=== PATIENT | female | born 1985 | race Hispanic/Latino ===

== ENCOUNTER 2023-05-02 23:31 | Emergency (ER) | payer SELFPAY ==
--- OUTSIDE RECORDS SUMMARY | 2023-05-02 23:34 | XMS REPORT | Continuity of Care Document ---
:1985 Author Organization [facility] t Address [address] [place] [address] Care Team Providers Name Role Phone PCP, PATIENT DOES NOT HAVE A Primary Care Physician Unavaila ELIECER Fitzgerald Attending Clinician Unavailable SUMI HERRMANN M.D. Attending Clinician Unavailable ADULT CROSSING GUARD, ROOM5 Attending Clinician Unavailable SADI ALBERTS M.D. Attending Clinician Unavailable WOMENS, ROOM-1 Attending Clinician Unavailable [facility], ULTRASOUND3 Attending Clinician Unavailable [facility], ULTRASOUND2 Attending Clinician Unavailable [facility], ULTRASOUND Attending Clinician Unavailable PIERRE MFM-CONSULTS Attending Clinician Unavailable WOMEN, COUNSELING Attending Clinician Unavailable Payers Payer Name Policy Type Policy Number Effective Date Expiration Date [facility] [id number] 2018 00:00:00 Problems Condition Condition Condition Status Onset Resolution Last Treating Co mments Source Name Details Category Date Date Treatment Clinician Date F/U F/U Diagnosis Active 2019-01-03 Mem oria GROWTH/S>D GROWTH/S>D -16 08:58:00 l /AMA /AMA 00:00: Michael Active 12/31/2018 Kwame Rodriguez History of History of Problem Resolve UT 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 Problem Active [facility] Physici ans AMA AMA Problem Active UT (advanced (advanced Phys ici maternal maternal ans age) age) multigravi multigravi da 35+ da 35+ Encounter Encounter Problem Active UT for for Physici supervisio supervisio an s n of n of normal normal in third in third trimester trimester Encounter Encounter Problem Active UT for for Physici initial initial ans prescripti prescripti on of on of contracept contracept kenzie pills kenzie pills Bacterial Bacterial Problem Active UT vaginosis vaginosis Phys ici ans Vaginal Vaginal Problem Active UT itching itching Physici ans Low lying Low lying Problem Active UT placenta, placenta, Phys ici antepartum antepartum an s Problem Active UT hydronephr hydronephr Ph ysici osis osis ans during during , , antepartum antepartum 6 weeks 6 weeks Problem Active UT Ph ysici follow-up follow-up ans Allergies, Adverse Reactions, Alerts Allergy Allergy Status Severity Reaction(s) Onset Inactive Treating Comm ents Source Name Type Date Date Clinician NO KNOWN Drug Active Univers ALLERGIE Class ity of S [facility] Social History Smoking Status Start Date Stop Date Source Never smoker [facility] Medications Ordered Filled Start Stop Current Ordering Indication Dosage Frequency Signature Comments Components Source Medication Medication Date Date Medication? [facility]) [facility] Yes SUMI QD TAKE 1 UT 0.25-35 0.25-35 9-04 FOONG M.D. TABLET P hysici MG-MCG Oral MG-MCG Oral 00:00: DAILY ans Tablet Tablet 00 DIRECTED. Yes UT Vitamins Vitamins Physici TABS TABS ans Vital Signs Vital Name Observation Time Observation Value Comments Source BP Systolic 2019-02-19 15:27:00 119 mm[Hg] Location: [facility] Linux Voice sicians Position: Sitting BP Diastolic 2019-02-19 15:27:00 81 mm[Hg] Location: [facility] Phy sicians Position: Sitting Height 2019-02-19 15:27:00 62 [in_us] [facility] Weight 2019-02-19 15:27:00 187.375 [lb_av] [facility] Body Mass Index 2019-02-19 15:27:00 34.27 kg/m2 [facility] Calculated Heart Rate 2019-02-19 15:27:00 78 /min [facility] BP Systolic 2019-01-07 13:42:00 122 mm[Hg] Location: [facility] Phy sicians Position: Sitting BP Diastolic 2019-01-07 13:42:00 72 mm[Hg] Location: LUE; [facility] Position: Sitting Height 2019-01-07 13:42:00 62 [in_us] [facility] Weight 2019-01-07 13:42:00 206.125 [lb_av] [facility] Body Mass Index 2019-01-07 13:42:00 37.7 kg/m2 [facility] Calculated Heart Rate 2019-01-07 13:42:00 87 /min [facility] BP Systolic 2018-12-24 16:17:00 108 mm[Hg] Location: LUE; [facility] Position: Sitting BP Diastolic 2018-12-24 16:17:00 68 mm[Hg] Location: LUE; [facility] Position: Sitting Height 2018-12-24 16:17:00 62 [in_us] [facility] Weight 2018-12-24 16:17:00 204.5 [lb_av] [facility] Body Mass Index 2018-12-24 16:17:00 37.4 kg/m2 [facility] Calculated Temperature 2018-12-24 16:17:00 98.4 [degF] Method: Oral [facility] BP Systolic 2018-12-05 14:34:00 118 mm[Hg] Location: LUE; [facility] Position: Sitting BP Diastolic 2018-12-05 14:34:00 80 mm[Hg] Location: LUE; [facility] Position: Sitting Height 2018-12-05 14:34:00 62 [in_us] [facility] Weight 2018-12-05 14:34:00 199 [lb_av] [facility] Body Mass Index 2018-12-05 14:34:00 36.4 kg/m2 [facility] Calculated BP Systolic 2018-11-21 10:50:00 124 mm[Hg] Location: LUE; [facility] Position: Sitting BP Diastolic 2018-11-21 10:50:00 80 mm[Hg] Location: LUE; [facility] Position: Sitting Height 2018-11-21 10:50:00 62 [in_us] [facility] Weight 2018-11-21 10:50:00 194 [lb_av] [facility] Body Mass Index 2018-11-21 10:50:00 35.48 kg/m2 [facility] Calculated Temperature 2018-11-21 10:50:00 98.1 [degF] Method: Oral [facility] Heart Rate 2018-11-21 10:50:00 92 /min [facility] BP Systolic 2018-10-31 10:58:00 124 mm[Hg] Location: LUE; [facility] Position: Sitting BP Diastolic 2018-10-31 10:58:00 76 mm[Hg] Location: LUE; [facility] Position: Sitting Height 2018-10-31 10:58:00 62 [in_us] [facility] Weight 2018-10-31 10:58:00 186 [lb_av] [facility] Body Mass Index 2018-10-31 10:58:00 34.02 kg/m2 [facility] Calculated Heart Rate 2018-10-31 10:58:00 67 /min [facility] BP Systolic 2018-10-15 09:46:00 118 mm[Hg] Location: LUE; [facility] Position: Sitting BP Diastolic 2018-10-15 09:46:00 70 mm[Hg] Location: LUE; [facility] Position: Sitting Height 2018-10-15 09:46:00 62 [in_us] [facility] Weight 2018-10-15 09:46:00 184 [lb_av] [facility] Body Mass Index 2018-10-15 09:46:00 33.65 kg/m2 [facility] Calculated Heart Rate 2018-10-15 09:46:00 102 /min [facility] BP Systolic 2018-10-10 10:43:00 128 mm[Hg] Location: LUE; [facility] Position: Sitting BP Diastolic 2018-10-10 10:43:00 80 mm[Hg] Location: LUE; [facility] Position: Sitting Height 2018-10-10 10:43:00 62 [in_us] [facility] Weight 2018-10-10 10:43:00 181 [lb_av] [facility] Body Mass Index 2018-10-10 10:43:00 33.11 kg/m2 [facility] Calculated Temperature 2018-10-10 10:43:00 98.2 [degF] Method: Oral [facility] Heart Rate 2018-10-10 10:43:00 99 /min [facility] BP Systolic 2018-09-24 10:56:00 120 mm[Hg] Location: RUE; [facility] Position: Sitting BP Diastolic 2018-09-24 10:56:00 80 mm[Hg] Location: RUE; [facility] Position: Sitting Height 2018-09-24 10:56:00 62 [in_us] [facility] Weight 2018-09-24 10:56:00 177 [lb_av] [facility] Body Mass Index 2018-09-24 10:56:00 32.37 kg/m2 [facility] Calculated Heart Rate 2018-09-24 10:56:00 80 /min [facility] BP Systolic 2018-09-19 11:06:00 118 mm[Hg] Location: RUE; [facility] Position: Sitting BP Diastolic 2018-09-19 11:06:00 72 mm[Hg] Location: RUE; [facility] Position: Sitting Height 2018-09-19 11:06:00 62 [in_us] [facility] Weight 2018-09-19 11:06:00 177 [lb_av] [facility] Body Mass Index 2018-09-19 11:06:00 32.37 kg/m2 [facility] Calculated Heart Rate 2018-09-19 11:06:00 80 /min [facility] BP Systolic 2018-08-22 11:12:00 120 mm[Hg] Location: LUE; [facility] Position: Sitting BP Diastolic 2018-08-22 11:12:00 72 mm[Hg] Location: LUE; [facility] Position: Sitting Height 2018-08-22 11:12:00 62 [in_us] [facility] Weight 2018-08-22 11:12:00 167 [lb_av] [facility] Body Mass Index 2018-08-22 11:12:00 30.54 kg/m2 [facility] Calculated BP Systolic 2018-07-25 14:26:00 120 mm[Hg] Location: RUE; [facility] Position: Sitting BP Diastolic 2018-07-25 14:26:00 76 mm[Hg] Location: RUE; [facility] Position: Sitting Height 2018-07-25 14:26:00 62 [in_us] [facility] Weight 2018-07-25 14:26:00 159 [lb_av] [facility] Body Mass Index 2018-07-25 14:26:00 29.08 kg/m2 [facility] Calculated Temperature 2018-07-25 14:26:00 98.2 [degF] Method: Oral [facility] Heart Rate 2018-07-25 14:26:00 83 /min [facility] Procedures Procedure Date / Time Performed Performing Clinician Sourc e [QLH] RPR 2018-12-24 00:00:00 [facility] Physician s [QLH] CBC (INCLUDES 2018-12-24 00:00:00 [facility] DIFF/PLT) [QH] HIV AB, HIV 1/2, EIA, 2018-12-24 00:00:00 [facility] WITH REFLEXES [QH] STREPTOCOCCUS, GROUP B 2018-12-24 00:00:00 [facility] CULTURE (Genital Strep Screen) [QH] GLUCOSE, GESTATIONAL 2018-10-10 00:00:00 [facility] SCREEN (50G)-130 CUTOFF [QLH] CBC (INCLUDES 2018-10-10 00:00:00 [facility] DIFF/PLT) . [facility] - Affirm VPIII (BV 2018-09-24 00:00:00 [facility] Panel) [H] Alpha Fetoprotein (Only) 2018-08-22 00:00:00 [facility] Maternal Screen [H] Obstetrics Panel 2018-07-25 00:00:00 [facility] (includes CBCw/Diff,RPR, HbsAg,RubIgG,Type and Screen) [QH] HIV AB, HIV 1/2, EIA, 2018-07-25 00:00:00 [facility] WITH REFLEXES [QLH] CULTURE, URINE, 2018-07-25 00:00:00 [facility] ROUTINE [QLH] URINALYSIS, COMPLETE 2018-07-25 00:00:00 [facility] [H] Hemoglobin 2018-07-25 00:00:00 [facility] Phys[facility] s Electrophoresis and Interpretation [QH] [id number] 2018-07-25 00:00:00 [facility] DEHYDROGENASE, QUANT. . [facility] - PAP 2018-07-25 00:00:00 [facility] Physician s History of section UT P hysicians Encounters Start End Encounter Admission Attending Care Care Encounter Source Date/Time Date/Time Type Type Clinicians Facility Department ID 2023-05-02 Outpatient [id number] Memoria 23:33:33 [id number] Michael [id number] 2019-01-15 Inpatient MHHH MHHH [id number] MHH H 11:26:00 2019-01-14 Inpatient MHBL MHBL [id number] MHB L 15:46:00 2020-10-22 2020-10-22 Outpatient R YAYO, [facility] [id number] Univers 09:30:00 09:02:19 [facility] 2020-09-29 2020-09-29 [facility] [id number] Univers 11:10:00 13:25:22 [facility] 2019-02-19 2019-02-19 SHELBY Charles Obstetrics [id number] UT 15:45:00 15:45:00 t; SUMI HERRMANN and Genia JONAS M.D. Gynecology [facility] 2019-01-13 2019-01-13 Appointmen [facility]ULT [facility]ING [facility] [id number] UT 10:30:00 10:30:00 t; ADULT CROSSING GUARD, ROOM5 [facility] ROOM5 [facility] 2019-01-07 2019-01-07 AppointSHELBY [facility] [id number] UT 13:30:00 13:30:00 t; SADI ALBERTS Center Angelika Baig M.D. 2019-01-03 2019-01-03 Outpatient MHBL MHBL [id number] MHBL 08:48:00 08:48:00 2018-12-24 2018-12-24 AppointSHELBY Agustin [facility] [id number] UT 15:45:00 15:45:00 t; SADI ALBERTS Center Angelika Baig M.D. 2018-12-09 2018-12-09 [facility] [id number] UT 10:30:00 10:30:00 t; WOMENS, ROOM-1 Phy sici ROOM-1 ans 2018-12-05 2018-12-05 [facility] [id number] UT 14:30:00 14:30:00 [facility] [place] [facility] Carney 2018-12-05 2018-12-05 [facility] [id number] UT 10:15:00 10:15:00 t; ULTRASOUND3 [facility] ULTRASOUND 3 2018-11-21 2018-11-21 [facility] [id number] UT 10:45:00 10:45:00 t; [facility] [place] aimee Carney 2018-11-01 2018-11-01 [facility] [id number] [place] 10:00:00 10:00:00 t; TY, Physic i [facility] ULTRASOUND2 a ns ITY, ULTRASOUND 2 2018-10-31 2018-10-31 [facility] [id number] UT 10:45:00 10:45:00 t; SADI ALBERTS [facility] Angelika [place] aimee Carney 2018-10-15 2018-10-15 [facility] [id number] UT 09:45:00 09:45:00 t; SADI ALBERTS [facility] Angelika [place] aimee Carney 2018-10-11 2018-10-11 [facility] [id number] [place] 09:45:00 09:45:00 t; ULTRASOUND [facility] ULTRASOUND 2018-10-10 2018-10-10 [facility] [id number] UT 10:45:00 10:45:00 t; SADI ALBERTS, [facility] Angelika [place] aimee Carney 2018-10-01 2018-10-01 [facility] [id number] UT 14:00:00 14:00:00 t; [facility] 2018-10-01 2018-10-01 [facility] [id number] UT 13:00:00 13:00:00 t; TY, Physic i [facility] ULTRASOUND2 a ns ITY, ULTRASOUND 2 2018-09-24 2018-09-24 [facility] SHELBY ALBERTS Women's [id number] UT 10:30:00 10:30:00 t; SADI ALBERTS [facility] Angelika Noble M.D. 2018-09-19 2018-09-19 [facility] SHELBY ALBERTSs [id number] UT 10:30:00 10:30:00 t; SADI ALBERTS [place] Angelika Hutchinson M.D. 2018-09-16 2018-09-16 [facility] [id number] UT 10:45:00 10:45:00 t; WOMENS, ROOM-1 Phy sici ROOM-1 [facility] 2018-08-22 2018-08-22 [facility] SHELBY ALBERTS Womens [id number] UT 10:30:00 10:30:00 t; SADI ALBERTS [place] Angelika Hutchinson M.D. 2018-08-05 2018-08-05 [facility] [id number] UT 14:15:00 14:15:00 t; WOMENS, ROOM-1 Phy sici ROOM-1 [facility] 2018-08-05 2018-08-05 [facility] [id number] UT 13:30:00 13:30:00 t; WOMENSamir, COUNSELING Physici COUNSELING [facility] 2018-07-25 2018-07-25 [facility] Womens [id number] UT 14:00:00 14:00:00 t; SADI ALBERTS [place] Angelika Hutchinson M.D. Results Test Description Test Time Test Comments Results Result Comments Source [[facility]] CBC (INCLUDES DIFF/PLT) 2018-12-25 12:43:01 Test Item Value Reference Range Interpretation Comme nts WBC (test code = 6690-2) 10.1 {K/CMM} 3.7-10.4 RBC; Below Low Threshold (test code = 789-8) 3.93 {M/CMM} 4.20-5.40 Hgb (test code = 718-7) 12.7 g/dl 12.0-16.0 Hct (test code = 60439-3) 37.0 % 36.0-48.0 MCV (test code = 787-2) 94.2 fL 80.0-98.0 MCH; Above High Threshold (test code = 785-6) 32.4 pg 27.0-31. 0 MCHC (test code = 786-4) 34.4 g/dl 32.0-36.0 RDW (test code = 788-0) 13.1 % 11.5-14.5 Platelet (test code = 87854-0) 209 {K/CMM} 133-450 Mean Platelet Volume (test code = 74984-0) 8.5 fL 7.4-10.4 [facility]] [id number] 12:43:01 Test Item Value Reference Range Interpretation Comments RPR (test code = 83012-5) Non-Reactive Non-Reactive [facility]] [id number] 12:43:01 Test Item Value Reference Range Interpretation Comments Segmented Neutrophils (test code 71.9 % 45.0-75.0 = 26894-7) Monocytes (test code = 19280-7) 10.6 % 2.0-12.0 Lymphocytes; Below Low Threshold 16.3 % 20.0-40.0 (test code = 21453-1) Eosinophils (test code = 19421-1) 0.7 % 0.0-4.0 Basophils (test code = 706-2) 0.5 % 0.0-1.0 Segs-Bands # (test code = 7.3 {K/CMM} 1.5-8.1 89969-2) Lymphocytes # (test code = 1.6 {K/CMM} 1.0-5.5 74046-6) Monocytes #; Above High Threshold 1.1 {K/CMM} 0.0-0.8 (test code = 03369-0) Eosinophils # (test code = 0.1 {K/CMM} 0.0-0.5 96315-4) Basophils # (test code = 74193-4) 0.1 {K/CMM} 0.0-0.2 RBC Morphology (test code = RBC Normal Normal Morphology) Plt Morphology (test code = Plt Normal Normal Morphology) [facility][QH] HIV AB, HIV 1/2, EIA, WITH [id number] 12:43:01 Test Item Value Reference Range Interpretation Comments HIV Ag/Ab 4th Gen Negative Negative HIV test r esults should be (test code = considered posi tive only 11740-2) when both the s creening andthe confirma tory tests are positive. A negative confirmatory te st in patientswith a positive screening test does not exclude HIV inf ection. If clincallywarran marycarmen, an HIV RNA quantitativ e test should be order ed. [facility][QH] STREPTOCOCCUS, GROUP B CULTURE (Genital Strep Screen) 2018-12-24 21:40:01 Test Item Value Reference Range Interpretation Comments FINAL REPORT (test No Beta-Hemolytic code = FINAL REPORT) Streptococci Isolated [facility][QLH] CBC (INCLUDES DIFF/PLT)2018-10-10 12:32:01 Test Item Value Reference Range Interpretation Comments WBC (test code = 6690-2) 10.4 {K/CMM} 3.7-10.4 RBC; Below Low Threshold (test 3.84 {M/CMM} 4.20-5.40 code = 789-8) Hgb (test code = 718-7) 12.1 g/dl 12.0-16.0 Hct (test code = 48846-3) 36.8 % 36.0-48.0 MCV (test code = 787-2) 95.8 fL 80.0-98.0 MCH; Above High Threshold (test 31.4 pg 27.0-31.0 code = 785-6) MCHC (test code = 786-4) 32.8 g/dl 32.0-36.0 RDW (test code = 788-0) 12.9 % 11.5-14.5 Platelet (test code = 90684-2) 270 {K/CMM} 133-450 Mean Platelet Volume (test code 8.7 fL 7.4-10.4 = 49652-0) [facility][QLH] [id number] 12:32:01 Test Item Value Reference Range Interpretation Comments Segmented Neutrophils (test code 71.3 % 45.0-75.0 = 45544-6) Monocytes (test code = 14711-7) 9.5 % 2.0-12.0 Lymphocytes; Below Low Threshold 17.9 % 20.0-40.0 (test code = 00229-0) Eosinophils (test code = 26611-8) 0.9 % 0.0-4.0 Basophils (test code = 706-2) 0.4 % 0.0-1.0 Segs-Bands # (test code = 7.4 {K/CMM} 1.5-8.1 52631-5) Lymphocytes # (test code = 1.9 {K/CMM} 1.0-5.5 27168-9) Monocytes #; Above High Threshold 1.0 {K/CMM} 0.0-0.8 (test code = 86487-8) Eosinophils # (test code = 0.1 {K/CMM} 0.0-0.5 26160-0) [facility][QH] GLUCOSE, GESTATIONAL SCREEN (50G)-130 [id number] 12:32:01 Test Item Value Reference Range Interpretation Comments Glucose Challenge (test code = 117.0 mg/dl <=140.0 1504-0) [facility]. [facility] - Affirm VPIII (BV Panel)2018-09-24 00:00:00 Test Item Value Reference Range Interpretation Comments Affirm VPIII (BV Panel) REPORT See Comment (test code = Affirm VPIII (BV Panel) REPORT) [facility][H] Alpha Fetoprotein (Only) Maternal [id number] 11:55:01 Test Item Value Reference Interpretation Comments Range Results Report (Maternal Screen) (test code = Results (Maternal Screen)) Test Results *Screen (Maternal Negative* Screen) (test code = Test Results (Maternal Screen)) Gest Age on 17.3 {WEEKS} Collection Date (test code = Gest Age on Collection Date) Gest Age Base On LMP 04/23/2018R ecalculations (test code = are not recomme nded when Gest Age Base gestational da tingby LMP On) and ultrasound are within 10 days. Maternal Age at 35.7 CINDY (test code = Maternal Age at CINDY) Maternal Race Other (test code = Maternal Race) Maternal Weight 167 {lb} (test code = Maternal Weight) Insulin-Dependen Comment Not provide d. t Diabetic (test code = Insulin-Dependen t Diabetic) Multiple Gest No (test code = Multiple Gest) Alpha 39.4 ng/ml Fetoprotein Maternal (test code = Alpha Fetoprotein Maternal) Multiple of 1.10 Median AFP (test code = 33511-8) Risk for NTD 8933 (OBS) (test code = Risk for NTD (OBS)) Maternal Screen Comment Interpretati on: Screen Interp (test NegativeThis re sult is code = Maternal screen negat kenzie for Screen Interp) OSB. The AFP MoMcalculated is based on the gestational age provided. M S-AFPcan identify up to 80% of open neural tu be defects.Closed neural tube defects and anthony e open defects may not bedetected by this test. T his test does not screen for fetalDown Syndr ome or Trisomy 18. If screening for Down Syndro meor Trisomy 18 is desired, contact [facility] to discuss availab le options. The AmericanCol lege of Obstetricians a nd Gynecologists recommendsamnio centesis be offered to wome n age 35 and older. Comment Comment Jessi De Anda, (Maternal Scrn) Ph.D., [facility] Principal (test code = Genetics Techni vilma Comment DirectorReferen ignacio: (Maternal Scrn)) Available U greg Request.Multipl es Of Median Cutoffs For AFP ElevationsSingl eton 2.5 Black 2.8IDD 2. 0 Twins 4.5 Abbreviation De finitionsIDD - Insulin Dep D iabetesOSBR - Open Spina Bi fida RiskFor further inquiri es contact [facility] at [phone]. Performed At: [facility] [id number] [place], [place] [id number] goran Aguilar MD Ph :[phone] Insulin N Dependent? (test code = Insulin Dependent?) Gest Ager Weeks? 17 (test code = Gest Ager Weeks?) Gest Age Days 2 (test code = Gest Age Days) Gest Age Date of 20180822 Calculation (MDD) (test code = Gest Age Date of Calculation (YMMDD)) Gest Age Method LMP of Calculation (test code = Gest Age Method of Calculation) Date of LMP 20180423 (test code = Date of LMP) Est Due Date 20190128 (test code = Est Due Date) Number of 1 Fetuses (test code = Number of Fetuses) Other N Indications? (test code = Other Indications?) [facility][H] Obstetrics Panel (includes CBCw/Diff,RPR, HbsAg,RubIgG,Type and Screen)2018-07-25 15:48:01 Test Item Value Reference Range Interpretation Comments WBC (test code = 10.3 {K/CMM} 3.7-10.4 6690-2) RBC; Below Low 3.94 {M/CMM} 4.20-5.40 Threshold (test code = 789-8) Hgb (test code = 12.2 g/dl 12.0-16.0 717-9) Hct (test code = 36.6 % 36.0-48.0 30881-8) MCV (test code = 92.9 fL 80.0-98.0 787-2) MCH (test code = 31.0 pg 27.0-31.0 17303-8) MCHC (test code = 33.4 g/dl 32.0-36.0 786-4) RDW (test code = 12.5 % 11.5-14.5 788-0) Platelet (test code = 304 {K/CMM} 133-450 777-3) MPV (test code = 8.5 fL 7.4-10.4 12375-9) Segs (test code = 69.3 % 45.0-75.0 87435-5) Monocytes #; Above 1.0 {K/CMM} 0.0-0.8 High Threshold (test code = 79623-4) Lymphocytes (test 19.7 % 20.0-40.0 code = Lymphocytes) Eosinophils (test 0.6 % 0.0-4.0 code = Eosinophils) Basophils (test code 0.4 % 0.0-1.0 = 47441-9) Segs-Bands # (test 7.1 {K/CMM} 1.5-8.1 code = 94039-1) Lymphocytes # (test 2.0 {K/CMM} 1.0-5.5 code = 98124-9) Eosinophils # (test 0.1 {K/CMM} 0.0-0.5 code = 83473-8) ABORH (test code = B POS 882-1) AB Screen (test code Negative = 890-4) RPR (test code = Non-Reactive Non-Reactive 44013-9) Rubella IgG (test 234.1 {IU/ml} >=10.0 Reference Range: code = 77875-4) Immune >= 10 IU/mL Hep Bs Ag (test code Negative Negative = 5195-3) [facility][H] G-6-PD [id number] 15:48:01 Test Item Value Reference Range Interpretation Comments Hgb (test code = 12.2 g/dl 06-02 718-7) Ciuhtvo-9-BK 10.3 4.6-13.5 When decreased, G-6-PD, Quantitative (test {U/gHgb} Quant. va lues are code = 13468-9) associated w ithacute hemolytic anemi a when deficient indiv iduals areexposed to o xidative stress, such as with certainmedicati ons (e.g., primaqui ne), infection, or i ngestion offava beans. C aution: In patients wit h acute hemolysis(e.g., abnormally low RBC values), testin g for G-6-PD maybe fa lsely normal because older erythrocytes wi th a higherenzyme de ficiency have been hemol yzed. Young erythrocy tesand reticulocytes h ave normal or near- normal enzymeactivity. Normal values of G-6-P D may be measured forsev eral weeks following a hemolytic event.Performed At: [facility] [id number] [place], [place] [id number] priyanka Luu MD Ph:[phone] rformed At: [facility] [id number] [facility] [place], [place] [id number] Forrest MD Ph:[phone] [facility][QH] HIV AB, HIV 1/2, EIA, WITH [id number] 15:48:01 Test Item Value Reference Range Interpretation Comments HIV Ag/Ab 4th Gen Negative Negative HIV test r esults should be (test code = considered posi tive only 73454-4) when both the s creening andthe confirma tory tests are positive. A negative confirmatory te st in patientswith a positive screening test does not exclude HIV inf ection. If clincallywarran marycarmen, an HIV RNA quantitativ e test should be order ed. [facility]] URINALYSIS, [id number] 15:48:01 Test Item Value Reference Range Interpretation Comments UA Color (test code = 5778-6) Yellow UA Turbidity; Abnormal (test code Slight Clear A = 56380-8) UA Spec Grav (test code = 5810-7) 1.024 <=1.030 UA pH (test code = 5803-2) 6.0 5.0-8.0 UA Protein (test code = 96913-6) Negative Negative UA Glucose (test code = 64607-3) Negative Negative UA Ketones (test code = 63908-1) Negative Negative UA Bili (test code = 5770-3) Negative Negative UA Blood (test code = 5794-3) Negative Negative UROBILINOGEN (test code = 62256-8) <=1.0 0.1-1.0 UA Nitrite (test code = 5802-4) Negative Negative UA Leuk Est (test code = 5799-2) Negative Negative UA RBC; Above High Threshold (test 10 {/HPF} 0-2 code = 32411-0) UA WBC (test code = 43511-2) <1 0-5 UA Mucus (test code = 8247-9) Few None Seen UA Sq Epi (test code = 41273-6) Occasional Few Urine Calcium Oxalate Crystal Occasional None Seen (test code = 5774-5) [facility]] CULTURE, URINE, [id number] 15:48:01 Test Item Value Reference Range Interpretation Comments FINAL REPORT (test code = FINAL No Growth REPORT) [facility]] Hemoglobin Electrophoresis and [id number] 15:48:01 Test Item Value Reference Range Interpretation Comments Hgb A % (test code = 96.4 % 95.8-97.8 4546-8) Hgb A2 % (test code = 2.7 % 2.2-3.2 4552-6) Hgb F % (test code = 0.9 % 0.0-1.0 32430-3) Hgb S % (test code = 0.0 % 0.0-0.0 97461-8) Hgb C % (test code = 0.0 % 0.0-0.0 58305-4) Hemoglobin SEE NOTES No abnormal Electrophoresis hemoglobins are Interpretation (test detecte d; normal code = 19521-1) hemoglobin electrophoresis justin rn.The electron medical record has been reviewed f or relevant history.Ihave personally revi ewed the test result s and concur with the resident'kristenter preta tion.CPT [id number] natali Signature Kori Mark (Path) 07/29/18 3:46 P M [facility]. [facility] - [id number] 00:00:00 Test Item Value Reference Range Interpretation Comments PAP REPORT (test code = 58800-0) See Comment [facility]
[2023-05-03] MEDS ORDERED: LORazepam 2 MG/ML VIAL ONE (00:26)
[2023-05-03] MEDS ORDERED: NA CHLORIDE 0.9% 1,000 ML ONE (00:27)
[2023-05-03 00:45] LABS: Absolute Lymphocytes (CBC) 2.6 K/uL (0.7-4.9); Hematocrit 38.1 % (36.0-45.0); Lymphocytes % 53.6 % (15.3-44.8); MCV 91.1 fL (80-100); MPV 8.1 fL (7.6-11.3); Platelets 243 thou/uL (152-406); RBC Red Blood Cell Count 4.18 M/uL (3.86-4.86)
[2023-05-03 01:09] LABS: Potassium 3.2 mEq/L (3.5-5.1); Troponin High Sensitivity 4.8 pg/mL (<58.9)
[2023-05-03] MEDS ORDERED: POTASSIUM 25 MEQ EFFERV TAB ONE (01:32)
[2023-05-03 01:40] LABS: Blood Morphology Comment NOT SEEN (NOT SEEN); Platelet Estimate ADEQ
[2023-05-03 01:56] LABS: Specific Gravity 1.006 (1.005-1.030)
[2023-05-03 01:59] LABS: Specific Gravity 1.006 (1.005-1.030); Urine Bacteria <20 /HPF (<20); Urine Bilirubin NEGATIVE (Negative); Urine Blood Negative (Negative); Urine Clarity Clear (Clear); Urine Color Colorless (Yellow); Urine Glucose NEGATIVE (Negative); Urine Protein NEGATIVE (Negative); Urine RBC None Seen /HPF (None Seen); Urine Urobilinogen Normal (Normal); Urine pH 6.5 (5.0-7.0)
[2023-05-03 02:05] LABS: Barbiturates NEGATIVE (NEGATIVE); Benzodiazepines NEGATIVE (NEGATIVE); Cocaine NEGATIVE (NEGATIVE); METHAMPHETAM NEGATIVE (NEGATIVE); Methadone NEGATIVE (NEGATIVE); Opiates NEGATIVE (NEGATIVE); Phencyclidine NEGATIVE (NEGATIVE); THC Cannibis NEGATIVE (NEGATIVE)
--- NOTE | 2023-05-03 02:14 | EDPHYS ---
Physician Documentation [facility] Name: Keiry Ying Age: 37 yrs Sex: Female : 1985 Arrival Date: 05/02/2023 Time: 23:31 Bed 6 Private MD: ED Physician Jerome Prince HPI: 05/03 00:00 This 37 yrs old Female presents to ER via Ambulatory with complaints of cp Anxiety, Depression. 00:00 The patient or guardian reports cough, that is intermittent, flu symptoms, sore throat. cp 00:00 Onset: The symptoms/episode began/occurred 3 day(s) ago. Associated signs and symptoms: cp Pertinent negatives: diarrhea, fever, vomiting. Severity of symptoms: in the emergency department the symptoms are unchanged despite home interventions. Patient reports currently taking prescribed Amoxicillin for strep infection. Tested negative for flu this week. Historical: - Allergies: 05/02 23:49 No Known Allergies; bp - Immunization history:: Adult Immunizations up to date. - Social history:: Smoking status: Patient denies any tobacco usage or history of. ROS: 05/03 00:05 Constitutional: Positive for body aches, Negative for fever, poor PO intake, cp 00:05 Eyes: Negative for injury, pain, redness, and discharge, cp 00:05 ENT: Positive for sore throat, Negative for drainage from ear(s), ear pain, difficulty swallowing, difficulty handling secretions, 00:05 Respiratory: Positive for cough, shortness of breath, 00:05 Abdomen/GI: Negative for vomiting, diarrhea, constipation, 00:05 : Negative for urinary symptoms, 00:05 Neuro: Positive for weakness, Negative for altered mental status, syncope, 00:05 All other systems are negative, Exam: 00:10 Constitutional: The patient appears in no acute distress, alert, awake, non-toxic, well cp developed, well nourished, anxious, uncomfortable, 00:10 Head/Face: Normocephalic, atraumatic. cp 00:10 Eyes: Periorbital structures: appear normal, Conjunctiva: normal, no exudate, no injection, Sclera: no appreciated abnormality, Lids and lashes: appear normal, bilaterally, 00:10 ENT: External ear(s): are unremarkable, Ear canal(s): are normal, clear, TM's: are normal, no evidence of bulging, no erythema, Nose: is normal, Mouth: Lips: moist, Oral mucosa: moist, Posterior pharynx: Airway: no evidence of obstruction, patent, erythema, that is mild, exudate, is not appreciated, 00:10 Neck: ROM/movement: is normal, is supple, without pain, no range of motions limitations, no meningismus, 00:10 Chest/axilla: Inspection: normal, 00:10 Cardiovascular: Rate: normal, Rhythm: regular, 00:10 Respiratory: the patient does not display signs of respiratory distress, Respirations: normal, no use of accessory muscles, no retractions, labored breathing, is not present, Breath sounds: are clear throughout, no decreased breath sounds, no stridor, no wheezing, 00:10 Abdomen/GI: Inspection: abdomen appears normal, Palpation: abdomen is soft and non-tender, in all quadrants, 00:10 Skin: no rash present. 00:10 Neuro: Orientation: to person, place \T\ time. Mentation: is normal, Motor: moves all fours, strength is normal, Sensation: is normal, Gait: is steady, 00:47 ECG was reviewed by the Attending Physician. Vital Signs: 05/02 23:48 BP 145 / 90; Pulse 93; Resp 16; Temp 97.7; Pulse Ox 100% ; bp 05/03 00:30 BP 129 / 90; Pulse 71; Resp 18 S; Pulse Ox 99% on R/A; ha1 01:31 BP 121 / 82; Pulse 77; Resp 16 S; Pulse Ox 100% on R/A; as6 02:39 BP 122 / 80; Pulse 82; Resp 15 S; Pulse Ox 100% on R/A; ha1 MDM: 05/02 23:55 Patient medically screened. 05/03 01:00 Differential diagnosis: bronchitis, flu, URI, sepsis, uti, COVID-19, pneumonia. 02:12 Data reviewed: vital signs, nurses notes, lab test result(s), EKG, radiologic studies, cp plain films. 02:12 I considered the following discharge prescriptions or medication management in the emergency department Medications were administered in the Emergency Department. See MAR. Independent interpretation of the following test(s) in the Emergency Department EKG: See my EKG interpretation above. Counseling: I had a detailed discussion with the patient and/or guardian regarding the historical points, exam findings, and any diagnostic results supporting the discharge/admit diagnosis, lab results, radiology results, to return to the emergency department if symptoms worsen or persist or if there are any questions or concerns that arise at home. 05/03 00:04 Order name: COVID-19 SARS RT PCR; Complete Time: 01:14 05/03 01:14 Interpretation: Reviewed. 05/03 00:04 Order name: Influenza Screen (a \T\ B); Complete Time: :14 cp 05/03 00:04 Order name: Basic Metabolic Panel; Complete Time: :14 05/03 01:14 Interpretation: Normal except: NA 135; K 3.2; CA 8.4. 05/03 00:04 Order name: CBC with Diff; Complete Time: 02:03 05/03 02:03 Interpretation: Normal except: RDW 12.0; INEZ% 32.1; LYM% 53.6; MN% 13.2; NEUT A 1.6. 05/03 00:04 Order name: D-Dimer; Complete Time: 01:14 05/03 00:04 Order name: Magnesium; Complete Time: :14 05/03 00:04 Order name: Troponin HS; Complete Time: :14 05/03 00:04 Order name: UDS; Complete Time: 02:12 05/03 02:12 Interpretation: Reviewed. 05/03 00:04 Order name: PREGU; Complete Time: 02:03 05/03 00:04 Order name: Urinalysis W/Microscopic; Complete Time: 02:03 05/03 00:49 Order name: Manual Differential; Complete Time: 02:03 EDMS 05/03 02:03 Interpretation: Normal except: SEGS 33; BANDS [F] 4; BASOS 2. 05/03 00:04 Order name: XRAY Chest (1 view) cp 05/03 00:04 Order name: EKG; Complete Time: 00:05 cp 05/03 00:04 Order name: Cardiac monitoring; Complete Time: 00:26 cp 05/03 00:04 Order name: EKG - Nurse/Tech; Complete Time: 00:47 cp 05/03 00:04 Order name: IV Saline Lock; Complete Time: 00:26 cp 05/03 00:04 Order name: Labs collected and sent; Complete Time: cp 05/03 00:04 Order name: O2 Per Protocol; Complete Time: cp 05/03 00:04 Order name: O2 Sat Monitoring; Complete Time: cp EC:47 Rate is 70 beats/min. Rhythm is regular. ND interval is normal. QRS interval is normal. cp QT interval is normal. T waves are Inverted in lead aVR. Interpreted by me. Reviewed by me. Administered Medications: 00:27 Drug: Ativan IVP 1 mg IVP once Route: IVP; Site: right antecubital; ha1 02:43 Follow up: Response: No adverse reaction ha1 :27 Drug: NS 0.9% IV 1000 ml IV at 1 bolus Per protocol; 1000 mL bolus Route: IV; Rate: 1 ha1 bolus; Site: right antecubital; 01:33 Drug: Potassium PO Effervescent Tablet 50 mEq PO once; dissolve in 4 ounces of water or ha1 juice Route: PO; 02:00 Follow up: Response: No adverse reaction ha1 Disposition: 02:08 Co-signature as Attending Physician, Jerome Prince MD I agree with the assessment sp4 and plan of care. I reviewed the patient's care provided by the Advanced Practice Provider and agree with the diagnosis and treatment plan. Disposition Summary: 05/03/23 02:13 Discharge Ordered Notes: Location: Home cp Problem: new cp Symptoms: have improved cp Condition: Stable cp Diagnosis - SARS-associated coronavirus as the cause of diseases classified elsewhere cp Followup: cp - With: Private Physician - When: 2 - 3 days - Reason: Worsening of condition Discharge Instructions: - Discharge Summary Sheet cp - Aspirin and Your Heart cp - Form - Excuse from Work, School, or Physical Activity cp - COVID-19 cp - How to Protect Yourself and Others - [facility] (08/12/2021) cp - 10 Things You Can Do to Manage Your COVID-19 Symptoms at Home - [facility] (12/31/2020) cp - COVID-19: Quarantine and Isolation - [facility] (09/14/2021) cp - COVID-19: What to Do If You Are Sick - [facility] (09/06/2021) cp Forms: - Medication Reconciliation Form cp - Thank You Letter cp - Antibiotic Education cp - Prescription Opioid Use cp - Patient Portal Instructions cp - Leadership Thank You Letter cp Prescriptions: - Paxlovid 300 mg (150 mg x 2)-100 mg Oral Tablet, Dose Pack - take 1 dose pack ORAL route as directed on dose pack take TWO 150 mg tablets of cp nirmatrelvir with ONE 100 mg tablet of ritonavir twice daily for 5 days; 30 tablet; Refills: 0, Product Selection Permitted - Ibuprofen 800 mg Oral Tablet - take 1 tablet ORAL route every 8 hours As needed take with food; 30 tablet; cp Refills: 0, Product Selection Permitted Signatures: Dispatcher [employer] EDMS Erick Giordano PA PA cp Peltier, Brian RN RN Calli Spicer RN RN ha1 Jerome Prince MD MD sp4
--- NOTE | 2023-05-03 02:14 | ER ---
Nurse's Notes [facility] Name: Keiry Ying Age: 37 yrs Sex: Female : 1985 Arrival Date: 05/02/2023 Time: 23:31 Bed 6 Private MD: Diagnosis: SARS-associated coronavirus as the cause of diseases classified elsewhere Presentation: 05/02 23:48 Chief complaint: Patient states[facility] "I'VE HAD THE FLU AND WEAKNESS, AND bp DEPRESSION. I THINK I HAVE DIABETES BECAUSE MY MOM HAD IT.". Coronavirus screen: At this time, the client does not indicate any symptoms associated with coronavirus-19. Ebola Screen: No symptoms or risks identified at this time. Initial Sepsis Screen: Does the patient meet any 2 criteria? No. Patient's initial sepsis screen is negative. Does the patient have a suspected source of infection? No. Patient's initial sepsis screen is negative. Risk Assessment: Do you want to hurt yourself or someone else? Patient reports no desire to harm self or others. Onset of symptoms is unknown. 23:48 Method Of Arrival: Ambulatory bp 23:48 Acuity: LEI 3 bp Historical: - Allergies: 23:49 No Known Allergies; bp - Immunization history:: Adult Immunizations up to date. - Social history:: Smoking status: Patient denies any tobacco usage or history of. Screenin/16 02:39 [facility] ED Fall Risk Assessment (Adult) History of falling in the last 3 months, ha1 including since admission No falls in past 3 months (0 pts) Confusion or Disorientation No (0 pts) Intoxicated or Sedated No (0 pts) Impaired Gait No (0 pts) Mobility Assist Device Used No (0 pt) Altered Elimination No (0 pt) Score/Fall Risk Level 0 - 2 = Low Risk Oriented to surroundings, Maintained a safe environment, Hourly rounding (assess needs \\T\\ fall precautionary measures) done. Abuse screen: Denies threats or abuse. Denies injuries from another. Nutritional screening: No deficits noted. Tuberculosis screening: No symptoms or risk factors identified. Assessment: 05/02 23:55 General: Appears uncomfortable, Behavior is calm, cooperative. Pain: Denies pain. ha1 Neuro: Level of Consciousness is awake, alert, obeys commands, Oriented to person, place, time, situation. Neuro: Reports weakness. Cardiovascular: Capillary refill < 3 seconds Patient's skin is warm and dry. Respiratory: Airway is patent Respiratory effort is even, unlabored, Respiratory pattern is regular, symmetrical. Derm: Skin is pink, warm \\T\\ dry. Musculoskeletal: Circulation, motion, and sensation intact. Range of motion: intact in all extremities. 05/03 01:00 Reassessment: Patient and/or family updated on plan of care and expected duration. Pain ha1 level reassessed. Patient is alert, oriented x 3, equal unlabored respirations, skin warm/dry/pink. 02:00 Reassessment: Patient and/or family updated on plan of care and expected duration. Pain ha1 level reassessed. Patient is alert, oriented x 3, equal unlabored respirations, skin warm/dry/pink. Patient states feeling better. Patient states symptoms have improved. 02:38 Reassessment: Patient and/or family updated on plan of care and expected duration. Pain ha1 level reassessed. Patient is alert, oriented x 3, equal unlabored respirations, skin warm/dry/pink. Patient states feeling better. Patient states symptoms have improved. Psych: 02:40 [place] Suicide Severity Screening: In the past month, have you wished you were ha1 or wished you could go to sleep and not wake up? Patient responds "No." "In the past month, have you actually had any thoughts of killing yourself?" Patient responds "no." "In your lifetime, have you ever done anything, started to do anything, or prepared to do anything to end your life?" Patient responds "no.". Subjective:. Objective: Patient is cooperative. Safety Checks: Personal items have been removed. Pt has been placed in a hallway bed/chair. Pt denies substance abuse. Vital Signs: 05/02 23:48 BP 145 / 90; Pulse 93; Resp 16; Temp 97.7; Pulse Ox 100% ; bp 05/03 00:30 BP 129 / 90; Pulse 71; Resp 18 S; Pulse Ox 99% on R/A; ha1 01:31 BP 121 / 82; Pulse 77; Resp 16 S; Pulse Ox 100% on R/A; as6 02:39 BP 122 / 80; Pulse 82; Resp 15 S; Pulse Ox 100% on R/A; ha1 ED Course: 05/02 23:34 Patient arrived in ED. gm2 23:40 Erick Giordano PA is PHCP. cp 23:40 Jerome Prince MD is Attending Physician. cp 23:49 Triage completed. bp 23:49 Arm band placed on. bp 23:55 Patient has correct armband on for positive identification. Bed in low position. Call ha1 light in reach. Side rails up X 1. Side rails up X2. 05/03 00:15 Inserted saline lock: 20 gauge in right antecubital area, using aseptic technique. ha1 Blood collected. 00:19 XRAY Chest (1 view) In Process Unspecified. EDMS 00:26 Basic Metabolic Panel Sent. ha1 00:26 CBC with Diff Sent. ha1 00:26 D-Dimer Sent. ha1 00:26 Magnesium Sent. ha1 00:26 Troponin HS Sent. ha1 02:40 No provider procedures requiring assistance completed. IV discontinued, intact, ha1 bleeding controlled, No redness/swelling at site. Pressure dressing applied. 02:42 Provided Education on: medication administration . ha1 Administered Medications: 00:27 Drug: Ativan IVP 1 mg IVP once Route: IVP; Site: right antecubital; ha1 02:43 Follow up: Response: No adverse reaction ha1 00:27 Drug: NS 0.9% IV 1000 ml IV at 1 bolus Per protocol; 1000 mL bolus Route: IV; Rate: 1 ha1 bolus; Site: right antecubital; 01:33 Drug: Potassium PO Effervescent Tablet 50 mEq PO once; dissolve in 4 ounces of water or ha1 juice Route: PO; 02:00 Follow up: Response: No adverse reaction ha1 Medication: 02:42 VIS not applicable for this client. ha1 Outcome: 02:13 Discharge ordered by MD. cp 02:41 Discharged to home ambulatory, with family, ha1 02:41 Condition: stable 02:41 Discharge instructions given to patient, family, Instructed on discharge instructions, follow up and referral plans. medication usage, Demonstrated understanding of instructions, follow-up care, medications, Prescriptions given X 2, 02:42 Patient left the ED. ha1 Signatures: Dispatcher [employer] EDNJ Erick Giordano PA PA cp Peltier, Brian RN RN Ariel Liz RN RN as6 Calli Vann, RN RN ha1 Adenike Farmer gm2
[2023-05-03 03:13] VITALS: TEMP 97.7
[2023-05-03 03:17] VITALS: O2SAT 100
[2023-05-03 03:18] VITALS: BP 122/80
--- NOTE | 2023-05-03 10:41 | EKG ---
Test Date: 2023-05-03 Test Time: 00:44:33 Editor Sound: ANUJA MEASUREMENT RESULTS: Intervals: Rate: 70 NV: 136 QRSD: 88 QT: 410 QTc: 442 [place]: P: 63 NV: 136 QRS: 58 T: 25 INTERPRETIVE STATEMENTS: Normal sinus rhythm Low voltage QRS Borderline ECG No previous ECG available for comparison Electronically Signed On 05-03-23 10:40:44 [employer] by Vick Owusu
--- NOTE | 2023-05-03 21:00 | RAD REPORT ---
EXAM DESCRIPTION: RAD - Chest Single View - 05/03/2023 12:17 am CLINICAL HISTORY: 37-year-old female with cough. TECHNIQUE: Single view, AP portable chest was obtained. COMPARISON: None. FINDINGS: Unremarkable cardiac and mediastinal silhouette. Heart size is normal. Low lung volumes grossly clear without focal opacity, pneumothorax or pleural effusions. The visual ized bones are within normal limits. IMPRESSION: No acute cardiopulmonary abnormalities. Electronically signed by: Mary Sylvester MD 05/03/2023 12:30 AM VP OF [employer] Due to temporary technical issues with the PACS/Fluency reporting system, reports are being signed by the in house radiologists without review as a courtesy to insure prompt reporting. The interpreting radiologist is fully responsible for the content of the report.
== END 2023-05-03 02:42 | disposition home or self-care (01) ==
LOC: ER 23:31
DX: U07.1 COVID-19 (principal)
CPT/HCPCS: 36415; 71045; 80048; 80307; 81001; 81025; 83735; 84484; 85025; 85379; 87635; 87804; 93005; 96374; 99284; J7030